=== PATIENT | female | born 1965 | race Caucasian/White ===

== ENCOUNTER → 2016-07-20 | Outpatient (CLI) | payer OTHER ==
[~2016-07-20] MED LIST: AMLO5TAB2 PO; ATEN25TA PO; ESCI10TA PO; GABA100C8 PO; GABA300C10 PO; GEMF600T3 PO; HYDR25CA94 PO; LIDOCAINE 1%-EPI 1:100K, 20ML ONE; LISI-167 PO; LORA-446 PO; POTA10TA90 PO; SODIUM BICARBONATE 4.2%, 5ML ONE; TRAZ50TA18 PO; VENL37.52 PO; ZOLP-413 PO
== END | disposition home or self-care (01) ==
LOC: CFH 10:38
PROVIDERS: ATTEND Internal Medicine
DX: N63 Unspecified lump in breast (principal)
CPT/HCPCS: 19083; 88305; J3490